=== PATIENT | female | born 1975 | race Caucasian/White ===

== ENCOUNTER 2016-12-05 22:12 | Emergency (ER) | payer MEDICAID ==
[2016-12-05 22:12] VITALS: BMI 30.1
[2016-12-06 01:05] VITALS: BP 116/73; PULSE 59; RESP 18; TEMP 97.8; O2SAT 99
--- NOTE | 2016-12-06 01:08 | CT ---
EXAM: CT Head Without Intravenous Contrast CLINICAL HISTORY: 41 years old, female; Pain; Headache; Additional info: Headache, left sided TECHNIQUE: Axial computed tomography images of the head/brain without intravenous contrast. This CT exam was performed using one or more of the following dose reduction techniques: automated exposure control, adjustment of the mA and/or kV according to patient size, and/or use of iterative reconstruction technique. COMPARISON: No relevant prior studies available. FINDINGS: Brain: No intracranial hemorrhage. No mass. No definite edema. Ventricles: No hydrocephalus. Bones/joints: No acute fracture. Soft tissues: Unremarkable. Sinuses: No acute sinusitis. Mastoid air cells: No mastoid effusion. Orbits: Unremarkable as visualized. IMPRESSION: 1. No acute intracranial abnormality. 2. Incidental/non-acute findings are described above.
--- NOTE | 2016-12-06 01:12 | C.PDOC ---
History Of Present Illness 41 y/o female presents to emergency department with complaint of left sided headache, described as sharp, onset at 17:00 today. Patient reports her son fell and hit his head, and was bleeding, which caused her a lot of distress just before headache onset. Pt states she took Percocet prescribed for her s/p c -section (patient is 15 days post-) with no relief. Patient also c/o photophobia. Denies trauma or fall, visual changes, nausea, vomiting, new weakness or numbness, or other associated symptoms. Time Seen by Provider: 12/05/16 22:45 Chief Complaint (Nursing): Headache History Per: Patient History/Exam Limitations: no limitations Onset/Duration Of Symptoms: Hrs Current Symptoms Are (Timing): Still Present Quality: Sharp, "Pain" Associated Symptoms: Photophobia. denies: Blurred Vision, Nausea, Vomiting, Extremity Weakness Recent travel outside of the [place]: No Past Medical History Reviewed: Historical Data, Nursing Documentation, Vital Signs Vital Signs: Last Vital Signs Temp 97.8 F 12/06/16 01:03 Pulse 59 L 12/06/16 01:03 Resp 18 12/06/16 01:03 BP 116/73 12/06/16 01:03 Pulse Ox 99 12/06/16 01:19 - Medical History PMH: Anemia Surgical History: - [facility] Procedures EXTRACTION OF POC, LOW CERVICAL, OPEN APPROACH (11/15/16) MONITORING OF POC, CARDIAC RATE, SECURITY PROGRAM MANAGER APPROACH (11/15/16) Family History: States: Unknown Family Hx - Social History Hx Tobacco Use: No Hx Alcohol Use: No Hx Substance Use: No Review Of Systems Except As Marked, All Systems Reviewed And Found Negative. Constitutional: Negative for: Fever, Chills Respiratory: Negative for: Cough Gastrointestinal: Negative for: Nausea, Vomiting Musculoskeletal: Negative for: Neck Pain Skin: Negative for: Rash Neurological: Positive for: Headache. Negative for: Weakness, Numbness, Dizziness Physical Exam - Physical Exam Appears: Non-toxic, No Acute Distress Skin: Warm, Dry Head: Atraumatic, Normacephalic Eye(s): bilateral: Normal Inspection, PERRL, EOMI Ear(s): Bilateral: Normal Nose: Normal Neck: Normal ROM, Supple Chest: Symmetrical Cardiovascular: Rhythm Regular Respiratory: Normal Breath Sounds, No Rales, No Rhonchi, No Wheezing Gastrointestinal/Abdominal: Soft, No Tenderness, No Guarding, No Rebound Back: Normal Inspection Extremity: Normal ROM, Capillary Refill (< 2 sec. ) Neurological/Psych: Oriented x3, Normal Speech, Normal Cognition, Normal Cranial Nerves ED Course And Treatment O2 Sat by Pulse Oximetry: 99 (RA) Pulse Ox Interpretation: Normal - CT Scan/US CT Head Other Rad Studies (CT/US): Read By Radiologist, Radiology Report Reviewed CT/US Interpretation: EXAM: CT Head Without Intravenous Contrast. CLINICAL HISTORY: 41 years old, female; Pain; Headache; Additional info: Headache, left sided. TECHNIQUE: Axial computed tomography images of the head/brain without intravenous contrast. This CT exam. was performed using one or more of the following dose reduction techniques: automated exposure. control, adjustment of the mA and/or kV according to patient size, and/or use of iterative. reconstruction technique. COMPARISON: No relevant prior studies available. FINDINGS: Brain: No intracranial hemorrhage. No mass. No definite edema. Ventricles: No hydrocephalus. Bones/joints: No acute fracture. Soft tissues: Unremarkable. Sinuses: No acute sinusitis. Mastoid air cells: No mastoid effusion. Orbits: Unremarkable as visualized. IMPRESSION: 1. No acute intracranial abnormality. 2. Incidental/non-acute findings are described above. Progress Note: Treated with Reglan 10mg IVP. CT Head ordered and reviewed; negative for acute intracranial abnormality. Pt given Fioricet. On reassessment , patient is resting comfortably, and is in no acute distress, with improvement of pain. Patient instructed to follow up with clinic/PMD within 1-2 days. 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 - Scribe Statement The provider has reviewed the documentation as recorded by the Georgina Coyle All medical record entries made by the Scribe were at my direction and personally dictated by me. I have reviewed the chart and agree that the record accurately reflects my personal performance of the history, physical exam, medical decision making, and the department course for this patient. I have also personally directed, reviewed, and agree with the discharge instructions and disposition.
[2016-12-06] MEDS ORDERED: Apap-Butalbital-Caffeine 325-50-40mg Tab ONE (01:17)
[2016-12-06] MEDS ORDERED: Apap-Butalbital-Caffeine 325-50-40mg Tab PO STA (01:34)
== END 2016-12-06 01:41 | disposition home or self-care (01) ==
LOC: C.ER 22:12
DX: R51 Headache (principal)
CPT/HCPCS: 70450; 96374; 99284; J2765